=== PATIENT | female | born 1995 | race Caucasian/White ===

== ENCOUNTER 2017-03-03 20:57 | Emergency (ER) | payer MEDICAID, OTHER ==
[2017-03-03] MEDS ORDERED: BUFFERED LIDOCAINE 10 ML SYRINGE ONE (21:10)
[2017-03-03] MEDS ORDERED: cephALEXin 250 MG CAPSULE PO STA (21:21)
[2017-03-03] MEDS ORDERED: cephALEXin 250 MG CAPSULE PO ONE (21:30)
--- NOTE | 2017-03-03 21:33 | ED Physician Documentation ---
PD HPI UPPER EXT INJURY - Stated complaint Stated Complaint: LEFT HAND LACERATION - Chief complaint Chief Complaint: Laceration - History obtained from History obtained from: Patient - History of Present Illness Location: Other (Right-handed woman, up-to-date on tetanus, cut her left hand with a knife at work just prior to arrival.) Review of Systems Constitutional: reports: Reviewed and negative Throat: reports: Reviewed and negative Cardiac: reports: Reviewed and negative Respiratory: reports: Reviewed and negative PD PAST MEDICAL HISTORY - Past Medical History Past Medical History: No - Past Surgical History Past Surgical History: No - Present Medications Home Medications: Ambulatory Orders Medication Instructions Recorded Confirmed Cephalexin [Keflex] 500 mg PO QID #20 capsule 03/03/17 - Allergies Allergies/Adverse Reactions: Allergies Allergy/AdvReac Type Severity Reaction Status Date / Time No Known Drug Allergies Allergy Verified 03/03/17 21:07 - Social History Does the pt smoke?: No Smoking Status: Never smoker Does the pt drink ETOH?: Yes Does the pt have substance abuse?: Yes - Immunizations Immunizations are current?: Yes PD ED PE NORMAL - Vitals Vital signs reviewed: Yes - General General: Alert and oriented X 3, No acute distress - Extremities Extremities: Other (On the radial side of the second finger at the level of the MCP there is an Oblique 2 cm deep laceration. She has normal sensation and cap refill of the tip, and normal strength in extension and flexion. However on examination after anesthesia it appears that she has a near complete laceration of 1 of her lumbricals there.) Results - Vitals Vitals: Vital Signs - 24 hr 03/03/17 21:06 Temperature 36.6 C Heart Rate 84 Respiratory 20 Rate Blood Pressure 104/50 L O2 Saturation 100 Oxygen O2 Source Room air Procedures - Laceration (location) Left hand Length in cm: 2 Wound type: Linear Neurovascular status: Sensory intact, Motor intact, Vascular intact Tendon involvement: Tendon Injury (lumbrical with normal flex/ext and abd/ adduction of 2nd digit.) Anesthesia: Lidocaine 1%, With bicarb Wound Preparation: Betadine, Irrigated copiously NS Skin layer closure: Nylon, Interrupted, Size #-0 - enter number (4-0), Sutures - enter # (7) Other: Patient tolerated well, No complications, Neurovascular intact, Tetanus UTD Complexity: Simple PD MEDICAL DECISION MAKING - ED course ED course: 21-year-old woman with oblique laceration to the left hand which involves 1 of her lumbricals. It was thoroughly washed out and closed and she was placed in a bulky dressing. Case discussed by phone with Dr. Cassidy, the on-call orthopedist who will see her in clinic. Departure - Departure Disposition: Home, Self Care Clinical Impression: Laceration Condition: Good Record reviewed to determine appropriate education?: Yes Instructions: ED Laceration Hand Follow-Up: Kj Ahn MD [Provider Admit Priv/Credential] - (Call Sunday for appt this coming week.) Prescriptions: Cephalexin [Keflex] 500 mg PO QID #20 capsule Comments: Follow-up with the orthopedic surgeon, call his office on Sunday. You can take the dressing off and lightly wash it with soap and water but keep it covered. Use it only lightly. Forms: Activity restrictions
[2017-03-03 21:53] VITALS: BP 120/73
== END 2017-03-03 21:53 | disposition home or self-care (01) ==
LOC: ED 20:57
DX: S61.412A Laceration without foreign body of left hand, initial encounter (principal); W26.0XXA Contact with knife, initial encounter; Y92.89 Other specified places as the place of occurrence of the external cause; Y99.0 Civilian activity done for income or pay
CPT/HCPCS: 1040M; 12001; 99283; A9270

== ENCOUNTER 2018-05-29 09:11 | Outpatient (CLI) | payer OTHER ==
[2018-05-29 13:32] LABS: BASOPHILS % (AUTO) 0.6 %; EOSINOPHILS # (AUTO) 0.1 10^3/uL (0.0-0.7); EOSINOPHILS % (AUTO) 1.5 %; HGB - HEMOGLOBIN 13.9 g/dL (12.0-16.0); LYMPHOCYTES # (AUTO) 1.9 10^3/uL (1.5-3.5); LYMPHOCYTES % (AUTO) 44.5 %; MEAN CORPUSCULAR HEMOGLOBIN 29.4 pg (27.0-31.0); MEAN CORPUSCULAR HGB CONC 34.3 g/dL (32.0-36.0); MEAN CORPUSCULAR VOLUME 85.7 fL (81.0-99.0); MEAN PLATELET VOLUME 7.9 fL (7.9-10.8); MONOCYTES # (AUTO) 0.3 10^3/uL (0.0-1.0); MONOCYTES % (AUTO) 6.7 %; NEUTROPHILS % (AUTO) 46.7 %; PLT - PLATELET COUNT 328 10^3/uL (130-450); RED BLOOD COUNT 4.74 10^6/uL (4.20-5.40); RED CELL DISTRIBUTION WIDTH 12.5 % (12.0-15.0); WHITE BLOOD COUNT 4.2 x10^3/uL (4.8-10.8)
[2018-05-29 13:38] LABS: ALBUMIN 4.4 g/dL (3.2-5.5); ALBUMIN/GLOBULIN RATIO 1.5 (1.0-2.2); ALKALINE PHOSPHATASE 50 IU/L (42-121); ALT ALANINE AMINOTRANSFERASE 18 IU/L (10-60); AST ASPARTATE AMINOTRANSFERASE 19 IU/L (10-42); BILIRUBIN,TOTAL 0.9 mg/dL (0.2-1.0); BUN - BLOOD UREA NITROGEN 11 mg/dL (6-20); CALCIUM 9.1 mg/dL (8.5-10.3); CARBON DIOXIDE - CO2 27 mmol/L (21-32); CHLORIDE 103 mmol/L (101-111); CREATININE 0.7 mg/dL (0.4-1.0); GFR - MDRD 104 (>89); GLUCOSE 93 mg/dL (70-100); SODIUM 139 mmol/L (135-145); TOTAL PROTEIN 7.3 g/dL (6.7-8.2)
[2018-05-29 13:40] LABS: CRP - C-REACTIVE PROTEIN < 1.0 mg/dL (0-1.0)
[2018-05-29 13:48] LABS: THYROID STIMULATING HORMONE 1.75 uIU/mL (0.34-5.60)
[2018-05-29 13:59] LABS: FOLATE 15.07 ng/mL (5.90 - >24.8)
[2018-05-29 16:11] LABS: RHEUMATOID FACTOR NEGATIVE (Negative)
[2018-05-31 20:17] LABS: ANA SCREEN POSITIVE (NEGATIVE)
== END 2018-05-29 23:59 | disposition home or self-care (01) ==
LOC: LAB.N 09:11
PROVIDERS: ATTEND Nurse Practitioner
DX: R53.83 Other fatigue (principal); E55.9 Vitamin D deficiency, unspecified; Z82.0 Family history of epilepsy and other diseases of the nervous system
CPT/HCPCS: 36415; 80053; 82306; 82607; 82746; 84443; 85025; 85651; 86038; 86140; 86430

== ENCOUNTER 2018-06-17 20:56 | Outpatient (CLI) | payer OTHER ==
--- NOTE | 2018-06-18 01:45 | Ultrasound Report ---
Reason: DEEP DYSPAREUNIA Procedure Date: 06/17/2018 Accession Number: [id number] / [id number] Procedure: US - Pelvic w/Transvaginal CPT Code: FULL RESULT: EXAM: PELVIC ULTRASOUND EXAM DATE: 06/17/2018 09:32 PM. CLINICAL HISTORY: DEEP DYSPAREUNIA. COMPARISON: None. TECHNIQUE: Realtime transabdominal pelvic scan performed to identify the uterus and adnexa and as an overview of other pelvic structures, followed by transvaginal scan to provide greater detail of the uterus and adnexa, with static image documentation. FINDINGS: Uterus: 8.5 x 3.7 x 4.9 cm, volume 80.7 cc. Anteverted position. Normal overall size and echotexture. Masses: None. Endometrium: 5 mm. No focal endometrial abnormalities. Cervix: Unremarkable. Right Ovary: 3 x 2.1 x 1.3 cm, volume 4.2 cc. Normal echotexture and blood flow. Left Ovary: 2.8 x 2.3 x 3.1 cm, volume 10.1 cc. Normal echotexture and blood flow. Free Fluid: None. Other: None. IMPRESSION: No acute sonographic abnormalities. RADIA
== END 2018-06-17 20:57 | disposition home or self-care (01) ==
LOC: DI 20:56
PROVIDERS: ATTEND Nurse Practitioner
DX: N94.12 Deep dyspareunia (principal)
CPT/HCPCS: 76830; 76856

== ENCOUNTER 2019-04-21 08:45 | Outpatient (CLI) | payer OTHER ==
[2019-04-21 12:10] LABS: ALBUMIN 4.1 g/dL (3.2-5.5); ALBUMIN/GLOBULIN RATIO 1.5 (1.0-2.2); CALCIUM 9.2 mg/dL (8.5-10.3); CREATININE 0.7 mg/dL (0.4-1.0); TOTAL PROTEIN 6.9 g/dL (6.7-8.2)
== END 2019-04-21 23:59 | disposition home or self-care (01) ==
LOC: LAB.N 08:45
PROVIDERS: ATTEND Nurse Practitioner Gerontology
DX: Z00.00 Encounter for general adult medical examination without abnormal findings (principal); G47.00 Insomnia, unspecified; F41.1 Generalized anxiety disorder; R53.83 Other fatigue
CPT/HCPCS: 36415; 80053; 84443

== ENCOUNTER 2019-12-30 14:49 | Outpatient (CLI) | payer OTHER ==
--- NOTE | 2019-12-30 16:42 | SLEEP CARE CONSULTATION ---
Information from patient questionnaire entered by Scotty Macias. I have reviewed and concur with the information entered by Scotty Macias. This document represents the service I personally performed and the decisions made by me, Gilmer Forbes MD, [facility]. History of Present Illness Service Date and Time: 12/30/2019 1449 Reason for Visit: New patient Chief Complaint: reports: Unrefreshed sleep, Snoring, Fatigue, Frequent awakenings at night, Other (elevated heart rate during sleep) Date of Onset: Over 10 years Usual bedtime: 8-929 Time it takes to fall asleep: 5-10 minutes Snores at night: Yes Observed to quit breathing while asleep: No Sleeps alone due to snoring: No Number of times waking at night: 3-6 times Reasons for waking at night: reports: Snoring Toss, Turn, or Twitch while sleeping: Yes Recalls having dreams: Yes Usually gets out of bed at: 6-7:30 Feels refreshed in the morning: No Morning headache: Yes Sleepy or fatigued during the day: Yes (fatigued) Ever fallen asleep while driving: No Takes day naps: No Dreams during day naps: Yes Prior sleep studies: No Additional HPI information: I had the pleasure of seeing Ms. Kessler today regarding the possibility of her having a sleep disorder. As you know, she is a 24 year old lady who complains of loud snore, frequent awakenings, unrefreshed sleep, and persistent fatigue for the past 10 years. The patient tells me that she normally goes to bed around 8 9:30 pm, and it takes her approximately 5 - 10 minutes to fall asleep. She has been told that she snores loudly at night. She has never been observed to stop breathing in her sleep. Her bed partner can still sleep in the same bed. She can recall waking up on the average of 3 - 6 times during the night. Most of the time she wakes up because of no apparent reason. She has awakened occasionally because of her own snoring, but not choking, or having to gasp for air. There is a lot of tossing and turning in her sleep. No somniloquy (sleep talking) or somnambulism (sleep walking). Generally she can recall having dreams. In the morning she usually gets up out of the bed around 6 7:30 a.m. not feeling refreshed nor rested. She usually does have a morning headache that goes away within an hour. However, sometimes it can last all day. During the day she complains of feeling fatigued. Her score on [place] Sleepiness Scale is 4 out of 24. She has never fallen asleep while driving nor has had any accident due to sleepiness. She usually does not take naps during the day. Upon falling asleep during the day she denies having vivid dreams. She has never had sleep paralysis, experienced cataplexy or symptoms of restless leg syndrome. She denies having impaired concentration during the day. 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 Patient is Single and lives in [place]. Have you smoked in the past 12 months: Yes Cigarettes per day (20/pack): 5 Years of smokin Quit date: July 2018 Smoking Pack Years: 0.4 Alcohol use: Yes Alcohol amount and frequency: 1-2 on weekends Caffeine use: Yes Caffeine amount and frequency: 1-2 cups daily Family History Family history of sleep disordered breathing: Yes (Mother and father) Family Hx Sleep Apnea: Mother: Sleep apnea - Untreated, Father: Sleep apnea - Untreated Allergies and Home Medications Drug allergies reviewed: Yes Home medication list reviewed: Yes Review of Systems Cardiovascular: denies: high blood pressure, palpitations, chest pain, irregular heart rate or pulse, leg or foot swelling, have to sleep sitting up, other Respiratory: denies: shortness of breath, wheeze, sputum production, chronic cough, other Gastrointestinal: denies: heartburn, difficulty swallowing, nausea, vomitting, diarrhea, abdominal pain, other Urinary: denies: incontinence, frequency, urgency, impotence, other Neurological: reports: headaches, speech dysfunction Psychiatric: reports: anxiety, depression, mood disorder Ear/Nose/Throat: reports: nasal congestion, sinus problems, wisdom teeth removed Endocrine: denies: thyroid disease, history of goiter, sluggishness, too hot or cold, excessive thirst, increased appetite, increased urination, unexplained weakness, other Musculoskeletal: denies: joint pain, neck pain, back pain, joint swelling, muscle pain or cramping, mobility problems, other Immunologic: reports: sneezing Physical Exam Vital signs obtained and entered by: To minimize the risk of COVID-19 exposure, detailed exam was not performed. Height: 5 ft 7 in Weight: 168 lb Body Mass Index: 26.3 BMI Classification: Overweight Impression and Plan IMPRESSION: 1. Obstructive Sleep Apnea-Hypopnea Syndrome, as suggested by history of loud and irregular snoring, frequent awakenings during the night, unrefreshed sleep, morning headache, cognitive impairment, and fatigue. Narrow oropharynx and obesity are common predisposing factors for obstructive sleep apnea-hypopnea syndrome. Pathophysiology of sleep-disordered breathing was discussed. I recommend proceeding to polysomnography to confirm the diagnosis and to assess severity. I informed the patient of what the sleep studies involve and after some discussion, she agreed to proceed. Plan: 1. Schedule an in-laboratory polysomnography. 2. Avoid long distance driving or when feeling sleepy. 3. Avoid alcohol, sedative and muscle relaxant around bedtime. 4. Attempt to lose weight. 5. Return in 1 to 2 weeks after the study to discuss results and initiate therapy. Visit Type: In Office Time Spent with Patient (minutes): 15 Provider Statement: I spent 100% of the Face to Face Visit with the patient with greater than 50% spent counseling the patient and coordination of care.
== END 2019-12-30 14:50 | disposition home or self-care (01) ==
LOC: SC 14:49
PROVIDERS: ATTEND Internal Medicine Pulmonary Disease
DX: G47.00 Insomnia, unspecified (principal); R53.83 Other fatigue; G47.8 Other sleep disorders; R06.83 Snoring; E66.3 Overweight; Z68.26 Body mass index [BMI] 26.0-26.9, adult
CPT/HCPCS: 99203; 99212

== ENCOUNTER 2020-02-03 19:31 | Outpatient (CLI) | payer OTHER | END 2020-02-03 19:32 | disposition home or self-care (01) | LOC: SC 19:31 | PROVIDERS: ATTEND Internal Medicine Pulmonary Disease | DX: G47.00 Insomnia, unspecified (principal); R53.83 Other fatigue; G47.8 Other sleep disorders; R06.83 Snoring; E66.3 Overweight | CPT/HCPCS: 95810 ==

== ENCOUNTER 2020-02-09 07:48 | Outpatient (CLI) | payer OTHER ==
--- NOTE | 2020-02-09 08:36 | SLEEP CARE CONSULTATION ---
Information from patient questionnaire entered by Татьяна Cervantes. I have reviewed and concur with the information entered by Татьяна Cervantes. This document represents the service I personally performed and the decisions made by , Anna Marie Valdez ARNP. History of Present Illness Service Date and Time: 02/09/2020 0748 Initial [place] Sleepiness Scale score: 3 Current [place] Sleepiness Scale score: 1 Additional HPI information: STACI OREILLY returns for follow up and results of the recently performed polysomnography. She has a history of anxiety, depression and mood disorder. She was seen due to history of snoring, daytime fatigue, insomnia, frequent night awakenings, and unrefreshed sleep. The patient was informed of the following findings: No significant sleep disordered breathing with an average AHI of 0.6 and valery oxygen saturation of 94%. I explained the pathophysiology behind obstructive sleep apnea. Patient does not have sleep apnea and was advised how weight gain could increase the risk of developing sleep apnea in the future. Patient has light to moderate snoring. Snoring can be reduced by weight loss. Weight loss is best achieved with diet consult. Patient instructed to contact PCP for referral. Snoring can also be treated with an oral appliance from a dentist. Advised to check insurance coverage. In addition, an ENT evaluation can be do to see if other treatment is indicated. Sleep Study - Results Type of Sleep Study: Polysomnography Year and Where: 02/2020 [facility] Polysomnography/Home Sleep Study results: IMPRESSION: The quality of the study is good. The patient had normal sleep efficiency. Except for mild sleep fragmentation, the sleep architecture was also normal. Respiratory monitoring showed no significant sleep disordered breathing (AHI = 0.6) or hypoxia (valery oxygen saturation of 94%). The patient slept adequately in supine position (supine AHI = 0.0; non-supine = 0.60). Snore was light to moderate in intensity. There was no significant periodic leg movement of sleep. Cardiac rhythm was normal sinus rhythm without significant arrhythmia. No abnormal behavior (parasomnia) observed during the night. Allergies and Home Medications Drug allergies reviewed: Yes (NKDA) Home medication list reviewed: Yes (no changes) Review of Systems Review of systems same as previous: Yes (no changes) Physical Exam Heart Rate: 76 O2 Saturation: 99 Height: 5 ft 7 in Weight: 174 lb Body Mass Index: 27.2 BMI Classification: Overweight Impression and Plan 1. Snoring but no significant sleep disordered breathing. Patient advised that often weight loss will reduce snoring as well as apnea risk. An oral appliance can also be used for snoring. This would require a dental consultation. Patient cautioned not to use other online appliances as can cause bite issues. A list of accredited dentists in area and one local dentist who makes oral appliances given. Patient is advised to check if insurance will cover. An ENT consult can also be helpful to determine if any other treatment is an option. 2. Fatigue. There are numerous reasons that can contribute to daytime fatigue. I reviewed the [employer] How to sleep better brochure with patient and encouraged her to examine her night time routine and sleep environment. She was also encouraged to keep to the same wake up time consistently every morning and not to lay down to sleep until sleepy. She should limit her time in bed to sleep to 7-9 hours as longer sleep time (time in bed) can also make her feel more tired during the day. She was advised that she may follow up with her PCP for further evaluation if needed for her daytime fatigue. She voiced understanding and agreement to plan. * Follow up with PCP for further evaluation of her fatigue as needed. * Avoid alcohol consumption near bedtime * The patient is cautioned about driving until sleepiness is completely resolved. * Return as needed for follow up. Counseling Topics: Weight loss health impact Visit Type: In Office Time Spent with Patient (minutes): 15 Provider Statement: I spent 100% of the Face to Face Visit with the patient with greater than 50% spent counseling the patient and coordination of care.
== END 2020-02-09 07:49 | disposition home or self-care (01) ==
LOC: SC 07:48
PROVIDERS: ATTEND Nurse Practitioner Family
DX: R06.83 Snoring (principal); R53.83 Other fatigue; E66.3 Overweight; Z68.27 Body mass index [BMI] 27.0-27.9, adult
CPT/HCPCS: 99212